=== PATIENT | female | born 1955 | race Caucasian/White ===

== ENCOUNTER 2021-10-19 10:10 | Emergency (ER) | payer BC, SELFPAY ==
[2021-10-19] VITALS (16 sets, daily range): BP systolic 134–157; BP diastolic 74–82; PULSE 71–93; RESP 9–17; TEMP 36.9; O2SAT 98–100
--- NOTE | ~2021-10-19 | CT_ITS ---
EXAMINATION: CT brain wo con DATE: 10/19/2021 11:16 INDICATION: Visual disturbance. Generalized weakness. TECHNIQUE: Computed tomography (CT) of the head was performed without intravenous contrast. Sagittal and coronal reconstructions were performed. The mA was adjusted according to patient size. Iterative reconstruction technique was employed. The dose-length product was 605.33 mGy-cm. COMPARISON: None FINDINGS: 1.9 x 1.3 x 1.6 cm slightly hyperdense mass at the medial right frontal lobe which abuts the falx, un clear whether intra or extra-axial . No acute intracranial hemorrhage, acute infarction or abnormal e xtra axial fluid collection. Ventricles are normal and symmetric. The orbits and mastoid air cells ar e normal. Mucus versus mucous retention cyst in the posterior left maxillary sinus. IMPRESSION: 1. 1.9 cm mass at the medial right frontal lobe, unclear whether intra-axial or extra-axial which is concerning for neoplasm which could be either benign or malignant. Recommend further evaluation with pre and postcontrast MRI. Reviewed, dictated and finalized at location B. IMPRESSION: 1. 1.9 cm mass at the medial right frontal lobe, unclear whether intra-axial or extra-axial which is concerning for neoplasm which could be either benign or m alignant. Recommend further evaluation with pre and postcontrast MRI.
--- NOTE | 2021-10-19 10:48 | ECG_ITS ---
Measurements Intervals [place] Rate: 79 P: -8 MO: 152 QRS: -27 QRSD: 83 T: 31 QT: 400 QTc: 460 Interpretive Statements SINUS RHYTHM BORDERLINE LEFT AXIS DEVIATION [QRS AXIS < -20] NO PREVIOUS ECG AVAILABLE FOR COMPARISON Electronically Signed On 10-19-2021 13:49:58 CDT by Paula Montes M.D.
[2021-10-19 11:15] LABS: Basophils Percent Auto 0.4 % (0.2-1.2); Eosinophils Absolute Auto 0.2 K/mm3 (0-0.3); Eosinophils Percent Auto 2.6 % (0-4.4); Hematocrit 42.5 % (37.0-47.0); Hemoglobin 14.3 g/dL (12.0-15.0); Immature Granulocyte Absolute 0.02 K/mm3 (0.00-0.031); Immature Granulocyte Percent A 0.3 % (0-0.5); Lymphocytes Absolute Auto 2.11 K/mm3 (0.9-3.2); Lymphocytes Percent Auto 30.7 % (18.3-44.2); Mean Corpuscular HGB Conc 33.6 g/dl (32-36); Mean Corpuscular Hemoglobin 31.1 pg (26-34); Mean Corpuscular Volume 92.4 fl (80-100); Mean Platelet Volume 11.1 fl (7.4-10.4); Monocytes Absolute Auto 0.3 K/mm3 (0.1-0.6); Monocytes Percent Auto 4.7 % (2.6-8.5); Neutrophils Absolute Auto 4.2 K/mm3 (1.3-6.7); Neutrophils Percent Auto 61.3 % (45.5-73.1); Platelet Count Result 232 k/mm3 (150-375); Red Cell Distribution Width 13.6 % (11.5-14.5); White Blood Count 6.9 K/mm3 (4.5-10.0)
--- NOTE | 2021-10-19 11:20 | ED.GENADULT ---
HPI - General Adult General Chief complaint: Unspecified Stated complaint: weakness, black spots in vision Time Seen by Provider: 10/19/21 10:48 Source: patient Mode of arrival: ambulatory Limitations: no limitations History of Present Illness HPI narrative: Patient is a 66-year-old female complaining of visual abnormalities described as looks like cobwebs and I had a black spot that was moving so I took off my glasses thinking it was my hair or my glasses were dirty but I still had it that lasted for approximately 20-30 minutes this morning and now resolved. Patient denies any speech disturbance, focal weakness or numbness, unsteady gait, dizziness, headache, chest pain, shortness of breath, or diaphoresis. Patient has no complaints at this time. Patient states that she has a history of 2 meningioma in the front part of her brain that is being followed up by her neurosurgeon. Patient states that she had an MRI last November and she had a frontal and temporal meningioma measuring approximately 2.1 cm . She states that her next MRI and follow-up with her neurosurgeon is in November. Related Data Home Medications Medication Instructions Recorded Confirmed amlodipine 5 mg PO BID 10/19/21 aspirin [Adult Aspirin] 81 mg PO DAILY 10/19/21 cholecalciferol (vitamin D3) 125 mcg PO DAILY 10/19/21 [Vitamin D3] ciprofloxacin HCl [Cipro] 500 mg PO Q12H 10/19/21 fluticasone propionate [Flonase] 2 spray INTRANASAL DAILY 10/19/21 furosemide 40 mg PO DAILY 10/19/21 lisinopril 40 mg PO DAILY 10/19/21 montelukast [Singulair] 10 mg PO DAILY 10/19/21 omeprazole 40 mg PO DAILY 10/19/21 Allergies Allergy/AdvReac Type Severity Reaction Status Date / Time cephalexin Allergy Hives Verified 10/19/21 10:17 Sulfa (Sulfonamide Allergy Hives Verified 10/19/21 10:17 Antibiotics) Review of Systems Review of Systems: All systems reviewed & are unremarkable except as noted in HPI and below Constitutional: Constitutional: Denies body ache(s), Denies chills, Denies excessive sweating, Denies fatigue, Denies fever(s), Denies headache(s), Denies lethargy, Denies malaise, Denies weakness and Denies weight loss Eyes: Eyes: Denies loss of vision ENT: Denies dizziness, Denies ear discharge, Denies headache(s), Denies lip swelling, Denies epistaxis, Denies nasal congestion, Denies neck pain, Denies throat swelling and Denies tongue swelling Cardiovascular: Cardiovascular: Denies chest pain, Denies chest pain at rest, Denies chest pain with activity, Denies diaphoresis, Denies rapid heart rate, Denies edema, Denies irregular heart rhythm, Denies lightheadedness, Denies palpitations, Denies dyspnea and Denies dyspnea on exertion Respiratory: Respiratory: Denies chest congestion, Denies cough, Denies hemoptysis, Denies dyspnea and Denies dyspnea on exertion Gastrointestinal: Gastrointestinal: Denies abdominal pain, Denies melena, Denies hematochezia, Denies diarrhea, Denies nausea, Denies vomiting and Denies hematemesis Musculoskeletal: Musculoskeletal: Denies abnormal gait, Denies deformity, Denies joint swelling, Denies limited range of motion, Denies neck pain and Denies numbness Neurologic: Denies Abnormal speech present, Denies abnormal gait, Denies confusion, Denies dizziness, Denies headache(s), Denies focal weakness, Denies loss of vision, Denies numbness, Denies Other visual disturbances, Denies Sensory deficit (Neuro) and Denies weakness Psychiatric: Psychiatric: Denies confusion, Denies depression, Denies auditory hallucinations, Denies homicidal ideation and Denies suicidal ideation Endocrine: Endocrine: Denies cold intolerance, Denies excessive sweating, Denies fatigue, Denies heat intolerance and Denies palpitations Hematologic/Lymphatic: Hematologic/Lymphatic: Denies easy bleeding and Denies easy bruising Allergic/Immunologic: Allergic/Immunologic: Denies lip swelling, Denies throat swelling and Denies tongue swelling PMFSH Comments Past med
[2021-10-19 11:32] LABS: Alanine Aminotransferase 20 U/L (4-35); Albumin Level 4.9 g/dL (3.5-5.1); Alkaline Phosphatase 91 U/L (38-126); Anion Gap 9 mmol/L (8-16); Aspartate Amino Transferase 26 U/L (14-36); Bilirubin,Total 0.3 mg/dL (0.2-1.3); Blood Urea Nitrogen 20 mg/dL (7-17); Calcium 9.5 mg/dL (8.4-10.2); Carbon Dioxide 27 mmol/L (22-30); Chloride 103 mmol/L (98-107); Estimated CRCL calculation 74 ml/min; Estimated Glomerular Filt Rate > 60; Glucose 116 mg/dL (65-110); Sodium 139 mmol/L (137-145)
[2021-10-19 11:43] LABS: Troponin I < 0.012 ng/mL (0.000-0.034)
== END 2021-10-19 13:45 | disposition home or self-care (01) ==
PROVIDERS: Emergency Provider Emergency Medicine
DX: H53.9 Unspecified visual disturbance (principal); Z79.82 Long term (current) use of aspirin; I10 Essential (primary) hypertension
CPT/HCPCS: 36415; 70450; 80053; 84484; 85025; 93005; 99284